=== PATIENT | male | born 1965 | race Hispanic/Latino ===

== ENCOUNTER 2023-05-10 17:01 | Emergency (ER) | payer SELFPAY ==
[2023-05-10] MEDS ORDERED: Sodium Chloride 0.9% 1,000 ML ONE ×2 (17:41→20:10)
[2023-05-10 17:44] LABS: #Lymphocytes 0.9 thou/uL (1.20-3.40); #Neutrophils 14.6 thou/uL (1.40-6.50); %Basophils 0.2 % (0.0-1.0); %Lymphocytes 5.5 % (21.0-51.0); %Monocytes 6.2 % (0.0-10.0); %Neutrophils 88.1 % (42.0-75.0); Hematocrit 31.3 % (42.0-52.0); Hemoglobin 10.3 g/dL (14.0-18.0); Mean Corpuscular HGB CONC 32.9 g/dL (32.0-36.0); Mean Corpuscular Hemoglobin 26.5 pg (27.0-31.0); Mean Corpuscular Volume 80.4 fl (78.0-98.0); Mean Platelet Volume 7.2 fL (7.4-10.4); Platelet Count 158 10x3/uL (130-400); RBC Distribution Width 13.7 % (11.5-14.5); White Blood Cell (WBC) Count 16.5 10x3/uL (4.8-10.8)
[2023-05-10] MEDS ORDERED: Sodium Chloride 0.9% 100 ML ONE (17:50)
[2023-05-10] MEDS ORDERED: cefTRIAXone (ROCEPHIN) 2 GM VIAL ONE (17:50)
[2023-05-10] MEDS ORDERED: Azithromycin 500 MG VIAL ONE (17:50)
[2023-05-10] MEDS ORDERED: Sodium Chloride 0.9% 250 ML 250 ML ONE ×2 (17:50→18:45)
[2023-05-10 18:01] LABS: INR-International Normal Ratio 1.2; Prothrombin Time 15.9 sec (12.0-14.7)
[2023-05-10 18:02] LABS: PTT 43.5 sec (22.9-36.1)
[2023-05-10 18:10] LABS: Troponin I 0.016 ng/mL (< 0.028)
[2023-05-10 18:36] LABS: ALT (SGPT) 24 U/L (8-55); AST (SGOT) 22 U/L (5-34); Albumin 3.6 g/dL (3.5-5.0); Alkaline Phosphatase 57 U/L (40-110); Anion Gap 14 mmol/L (10-20); BUN (Urea Nitrogen) 29 mg/dL (8.4-25.7); Bilirubin, Total 1.2 mg/dL (0.2-1.2); Calc. Creatinine Clearance 0 mL/min (70-130); Calcium 7.8 mg/dL (7.8-10.44); Carbon Dioxide 19 mmol/L (22-29); Chloride 105 mmol/L (98-107); Estimated GFR 22; Globulin 2.7 g/dL (2.4-3.5); Glucose 126 mg/dL (70-105); Lipase 16 U/L (8-78); Magnesium 1.5 mg/dL (1.6-2.6); Potassium 4.7 mmol/L (3.5-5.1); Protein, Total 6.3 g/dL (6.0-8.3); Sodium 133 mmol/L (136-145)
[2023-05-10] MEDS ORDERED: Magnesium 2 GM/50 ML BAG (IN WATER) ONE (19:45)
[2023-05-10 20:10] LABS: SARS-CoV-2 NAA Rapid Test Not Detected (NotDetected)
[2023-05-10] MEDS ORDERED: fentaNYL 50 mcg/mL 1 mL Vial ONE ×2 (20:40→21:08)
[2023-05-10 20:48] LABS: Lactic Acid 1.6 mmol/L (0.5-2.2)
== END 2023-05-10 21:15 | disposition short-term general hospital (02) ==
LOC: NAV ERS 17:01
DX: J18.9 Pneumonia, unspecified organism (principal); N28.9 Disorder of kidney and ureter, unspecified; E83.42 Hypomagnesemia; D72.829 Elevated white blood cell count, unspecified; I10 Essential (primary) hypertension
CPT/HCPCS: 71046; 80053; 83605; 83690; 83735; 83880; 84484; 85025; 85610; 85730; 87040; 87804; 87807; 93005; 96361; 96365; 96367; 96375; J0456; J0696; J3010; J3475; J3490; J7050; U0002